=== PATIENT | male | born 1970 | race Asian ===

== ENCOUNTER 2018-05-05 12:08 | Day surgery (SDC) | payer OTHER ==
[2018-05-05] MEDS ORDERED: PROPOFOL 40 ML (13:25)
[2018-05-05] MEDS ORDERED: LIDOCAINE 100 MG SYRINGE (13:25)
[2018-05-05] MEDS ORDERED: FENTAnyl 50 MCG/ML VIAL (13:25)
== END 2018-05-05 15:05 | disposition home or self-care (01) ==
LOC: GIL 12:08
DX: Z12.11 Encounter for screening for malignant neoplasm of colon (principal); D12.2 Benign neoplasm of ascending colon
CPT/HCPCS: 45385; 88305